=== PATIENT | male | born 1990 | race Caucasian/White ===

== ENCOUNTER 2019-07-11 15:24 | Inpatient (IN) | payer OTHER, SELFPAY ==
[~2019-07-11] VITALS: Ht 177.8 cm; Wt 68.2 kg
[2019-07-11] MEDS ORDERED: ACETAMINOPHEN *IV* 1,000 MG in APPROPRIATE DILUENT 1 EA IV ONE (16:45)
[2019-07-11] MEDS ORDERED: NS 1,000 ML IV ONE ×3 (16:45→21:15)
[2019-07-11 17:26] LABS: BASO % 0.3 % (0.0-1.0); HEMATOCRIT 47.8 % (42.0-52.0); HEMOGLOBIN 16.1 g/dl (13.5-17.5); LYMPH # 0.5 10^3/uL (1.5-5.0); LYMPH % 4.1 % (24.0-44.0); MEAN CORPUSCULAR HEMOGLOBIN 32.1 pg (27.0-33.0); MEAN CORPUSCULAR HGB CONC 33.7 g/dl (32.0-36.5); MEAN CORPUSCULAR VOLUME 95.4 fl (80.0-96.0); MONO # 1.6 10^3/uL (0.0-0.8); MONO % 12.6 % (0.0-5.0); NEUTROPHILS # 10.6 10^3/uL (1.5-8.5); NEUTROPHILS % 82.5 % (36.0-66.0); PLATELET COUNT, AUTOMATED 156 10^3/uL (150-450); RED BLOOD COUNT 5.01 10^6/uL (4.30-6.10); WHITE BLOOD COUNT 12.9 10^3/uL (4.0-10.0)
[2019-07-11 17:39] LABS: MONO SCRN NEGATIVE (NEGATIVE)
[2019-07-11 17:48] LABS: ERYTHROCYTE SEDIMENTATION RATE 9 mm/hr (0-15)
[2019-07-11 17:52] LABS: BLOOD UREA NITROGEN 9 MG/DL (7-18); CARBON DIOXIDE LEVEL 22 MEQ/L (21-32); CHLORIDE LEVEL 101 MEQ/L (98-107); CREATININE FOR GFR 0.89 MG/DL (0.70-1.30); GLOMERULAR FILTRATION RATE > 60.0 (>60); GLUCOSE, FASTING 109 MG/DL (70-100); POTASSIUM SERUM 3.8 MEQ/L (3.5-5.1); SODIUM LEVEL 134 MEQ/L (136-145)
[2019-07-11] MEDS ORDERED: ISOVUE-370 76% 100ML VIAL (Q9967) As Ordered ONE (18:05)
[2019-07-11 18:46] LABS: MYOGLOBIN SCREEN, URINE POSITIVE (NEGATIVE)
[2019-07-11 18:47] LABS: APPEARANCE, URINE HAZY (CLEAR); BACTERIA, URINE AUTO NEGATIVE (NEGATIVE); BILIRUBIN, URINE AUTO NEGATIVE (NEGATIVE); BLOOD, URINE BLOOD 1+ (NEGATIVE); COLOR, URINE YELLOW (YELLOW); GLUCOSE, URINE (UA) AUTO NEGATIVE (NEGATIVE); KETONE, URINE AUTO 2+ mg/dL (NEGATIVE); LEUKOCYTE ESTERASE, URINE AUTO NEGATIVE (NEGATIVE); MUCUS, URINE SMALL (NEGATIVE); NITRITE, URINE AUTO NEGATIVE (NEGATIVE); PROTEIN, URINE AUTO 2+ mg/dL (NEGATIVE); RBC, URINE AUTO 4 /HPF (0-3); SPECIFIC GRAVITY URINE AUTO 1.048 (1.002-1.035); SQUAMOUS EPITHELIAL CELL UR AU 0 /HPF (0-6); WBC, URINE AUTO 0 /HPF (0-3)
--- NOTE | 2019-07-11 19:04 | REPVR ---
EXAM: CT Neck With Contrast EXAM DATE/TIME: 07/11/2019 6:11 PM CLINICAL HISTORY: 29 years old, male; Mass, lump, or swelling in neck; Additional info: Diffuse lymphadenopathy cervical, ? dental abscess TECHNIQUE: Imaging protocol: Computed tomography images of the neck with intravenous contrast. Radiation optimization: All CT scans at this facility use at least one of these dose optimization techniques: automated exposure control; mA and/or kV adjustment per patient size (includes targeted exams where dose is matched to clinical indication); or iterative reconstruction. Contrast material: ISOVUE 370; Contrast volume: 100 ml; Contrast route: IV; COMPARISON: No relevant prior studies available. FINDINGS: Nasopharynx: Unremarkable. Oropharynx: Unremarkable. No significant tonsillar enlargement. Abnormal lucency in the left lung the mouth as described below does not extend to the mylohyoid. Hypopharynx: Unremarkable Larynx: Unremarkable. Normal epiglottis. Retropharyngeal space: Unremarkable. Submandibular/Parotid glands: The left submandibular gland is enlarged and heterogeneous in enhancement compared with the contralateral gland. There is an abnormal lucency extending anteriorly from the gland into the floor of the mouth. It does not have the tubular configuration of a normal duct. No evidence of sialolith. The right submandibular gland is normal. The parotids are normal. Thyroid: Normal. No enlarged or calcified nodules. Lymph nodes: Unremarkable. No lymphadenopathy. Trachea: Visualized trachea is unremarkable. Lungs: Unremarkable as visualized. Dental: There is artifact secondary to dental amalgam partially obscuring the oropharynx. There is no evidence of periapical dental abscess. Bones/joints: Unremarkable. No acute fracture. Soft tissues: There is left submandibular soft tissue swelling with infiltration of the subcutaneous fat and thickening of the platysma. IMPRESSION: Asymmetric heterogeneous enhancement and slight enlargement of the left submandibular gland consistent with sialoadenitis. There is an abnormal lucency extending from the gland into the floor of the mouth. It does not have the contour of a normal duct and may be an obstructed duct or developing abscess. There is adjacent left facial cellulitis. Electronically signed by: Alexandre Norton On 07/11/2019 19:04:03 PM
[2019-07-11] MEDS ORDERED: dexameTHASONE 20 MG/5 ML VIAL (J1100) IV ONE (19:30)
[2019-07-11] MEDS ORDERED: MORPHINE 2 MG/ML 1ML SYRINGE (J2270) IV ONE (19:30)
[2019-07-11 19:55] LABS: CPK CREATINE PHOSPHOKINASE 148 U/L (39-308)
[2019-07-11] MEDS ORDERED: MORPHINE 4 MG/ML 1ML VIAL/SYRINGE (J2270) IV ONE (21:15)
[2019-07-11] MEDS ORDERED: KETOROLAC 30 MG/ML VIAL (J1885) IV ONE (21:15)
[2019-07-11] MEDS ORDERED: CLINDAMYCIN 900 MG in APPROPRIATE DILUENT 1 EA IV ONE (21:15)
[2019-07-11] MEDS ORDERED: IBUP-1729 PO (21:29)
[2019-07-11] MEDS ORDERED: VITMTA PO (21:29)
[2019-07-11] MEDS ORDERED: ACETAMINOPHEN TAB 650MG DOSE (2X325MG) PO PRN (22:30)
--- NOTE | 2019-07-11 22:35 | HPEPDOC ---
General Date of Admission 07/11/19 Date of Service: Jul 11, 2019 Attending Physician: NILS SANTA DO Chief Complaint The patient is a 29-year-old male admitted with a reason for visit of Dental A bcess. Source: Patient Exam Limitations: No limitations Timing/Duration: Day(s) (3) Severity: Moderate Associated Symptoms: Chills, Loss of appetite History of Present Illness Patient is 29 years old male without past medical history presented hospital with left jaw pain and swelling. Patient stated that for many years he had poor oral hygiene, and 3 days ago he started noticing swelling of his left jaw soft tissue, which became bigger in size spreading down to the neck. He couldn't have opened his mouth to bite food. also patient complains of difficulty in s wallowing. Patient denies fever but he stated that he had the chills. Patient took ibuprofen 200 mg every 2 hours for past 24 hours. Of note, patient stated that he drinks vodka every day for past few months. In emergency room patient was found to have leukocytosis. Neck CT showed asymmetric heterogeneous enhancement and slight enlargement of the left submandibular gland consistent with sialoadenitis. There is an abnormal lucency extending from the gland into the floor of the mouth Home Medications Scheduled PRN Ibuprofen (Ibuprofen) 200 Mg Tablet, 400 MG PO Q6H PRN for PAIN, (Reported) Multivitamins (Thera M Plus Tablet) 1 Each Tablet, 1 TAB PO DAILY PRN for COLD SYMPTOMS, (Reported) Allergies Coded Allergies: No Known Allergies (Unverified , 07/11/19) Past Medical History Medical History No past medical history Family History Father has IBS Social History * Smoker: greater than 1 pack/day Alcohol: heavy Drugs: marijuana A-FIB/CHADSVASC A-FIB History Current/History of A-Fib/PAF?: No Current PO Anticoag Therapy: No Review of Systems Constitutional: Reports: Chills, Malaise Eyes: Denies: Conjunctivae inflammation ENT: Reports: Ear Pain (left), Dysphagia, Sore Throat, Other Symptoms (left jaw pain) Skin: Denies: Rash Pulmonary: Denies: Dyspnea Cardiovascular: Denies: Chest Pain, Palpitations Gastrointestinal: Denies: Nausea, Vomiting Genitourinary: Denies: Dysuria, Frequency Hematologic: Denies: Bruising, Bleeding Excessively Endocrine: Denies: Polydipsia, Polyphagia Musculoskeletal: Reports: Neck Pain (left side) Neurological: Denies: Weakness, Numbness, Incoordination Psych: Denies: Mood Normal, Depression Physical Examination General Exam: Positive: Alert, Cooperative Eye Exam: Positive: PERRLA, EOMI ENT Exam: Positive: Atraumatic, Pharyngeal Edema (left side), Other ENT (submandibular soft tissue swelling, left gum swelling) Neck Exam: Negative: JVD Chest Exam: Positive: Clear to auscultation Heart Exam: Positive: Rate Normal Telemetry: Positive: No significant arrhythmia Abdomen Exam: Positive: Normal bowel sounds Extremity Exam: Negative: Clubbing, Cyanosis Skin Exam: Negative: Nl turgor and temperature Neuro Exam: Positive: Normal Gait, Cranial Nerves 3-12 NL Psych Exam: Positive: Mental status NL Vital Signs Vital Signs Date Time Temp Pulse Resp B/P (MAP) Pulse Ox O2 Delivery O2 Flow Rate FiO2 07/11/19 21:35 16 07/11/19 15:39 07/11/19 15:24 99.0 133 98 Room Air Laboratory Data Labs 24H Laboratory Tests 2 07/11/19 16:59: Immature Granulocyte % (Auto) 0.5, White Blood Count 12.9H, Red Blood Count 5.01, Hemoglobin 16.1, Hematocrit 47.8, Mean Corpuscular Volume 95.4, Mean Corpuscular Hemoglobin 32.1, Mean Corpuscular Hemoglobin Concent 33.7, Red Cell Distribution Width 11.9, Platelet Count 156, Neutrophils (%) (Auto) 82.5H, Lymphocytes (%) (Auto) 4.1L, Monocytes (%) (Auto) 12.6H, Eosinophils (%) (Auto) 0.0, Basophils (%) (Auto) 0.3, Neutrophils # (Auto) 10.6H, Lymphocytes # (Auto) 0.5L, Monocytes # (Auto) 1.6H, Eosinophils # (Auto) 0.0, Basophils # (Auto) 0.0, Nucleated Red Blood Cells % (auto) 0.0, Erythrocyte Sedimentation Rate 9, Urine Appearance HAZY, Urine Color YELLOW, Urine pH 6.0, Urine Specific [place] 1.048, Urine Protein 2+H, Urine Glucose (UA) NEGATIVE, Urine Ketones 2+H, Urine Urobilinogen 2.0H, Urine Bilirubin NEGATIVE, Urine Leukocyte Esterase NEGATIVE, Urine Blood 1+H, Urine Nitrite NEGATIVE, Urine WBC (Auto) 0, Urine RBC (Auto) 4H, Urine Hyaline Casts (Auto) 0, Urine Bacteria (Auto) NEGATIVE, Urine Squamous Epithelial Cells 0, Urine Mucus (Auto) SMALL, Urine Sperm (Auto) , Urine My oglobin POSITIVE, Anion Gap 11, Glomerular Filtration Rate > 60.0, Blood Urea Nitrogen 9, Creatinine 0.89, Sodium Level 134L, Potassium Level 3.8, Chloride Level 101, Carbon Dioxide Level 22, Calcium Level 10.0, Total Creatine Kinase 148, C-Reactive Protein, Quantitative 15.30H, Monoscreen NEGATIVE CBC/BMP Laboratory Tests 07/11/19 16:59 Red Blood Count 5.01, Mean Corpuscular Volume 95.4, Mean Corpuscular Hemoglobin 32.1, Mean Corpuscular Hemoglobin Concent 33.7, Red Cell Distribution Width 11.9, Neutrophils (%) (Auto) 82.5 H, Lymphocytes (%) (Auto) 4.1 L, Monocytes (%) (Auto) 12.6 H, Eosinophils (%) (Auto) 0.0, Basophils (%) (Auto) 0.3, Neutrophils # (Auto) 10.6 H, Lymphocytes # (Auto) 0.5 L, Monocytes # (Auto) 1.6 H, Eosinophils # (Auto) 0.0, Basophils # (Auto) 0.0, Calcium Level 10.0 Microbiology Microbiology 07/11/19 Group A Streptococcus Screen (ARNULFO), Received Pending Assessment/Plan Patient is 29 years old male without past medical history presented hospital with left jaw pain and swelling. Patient stated that for many years he had poor oral hygiene, and 3 days ago he started noticing swelling of his left jaw soft tissue, which became bigger in size spreading down to the neck. He couldn't have opened his mouth to bite food. also patient complains of difficulty in swallowing. Patient denies fever but he stated that he had the chills. Patient took ibuprofen 200 mg every 2 hours for past 24 hours. Of note, patient stated that he drinks vodka every day for past few months. In emergency room patient was found to have leukocytosis. Neck CT showed asymmetric heterogeneous en hancement and slight enlargement of the left submandibular gland consistent with sialoadenitis. There is an abnormal lucency extending from the gland into the floor of the mouth Problems (1) Dental abscess Problem Text: Secondary to poor oral hygiene There is concern for spreading infection to the pharynx and retropharyngeal space Appreciate/agree with ENT consult Clindamycin 900 mg IV every 6h Blood culture, procalcitonin, LA (2) Alcohol abuse Problem Text: SiWA protocol (3) Facial cellulitis Status: Acute Problem Text: see above NILS SANTA DO Jul 11, 2019 22:35
[2019-07-11] MEDS ORDERED: LORazepam 2 MG TAB PO PRN (23:00)
[2019-07-12 00:16] VITALS: BP 117/78
[2019-07-12 00:18] VITALS: BP 117/78
[2019-07-12] MEDS: D5W/0.9% SODIUM CHLORIDE 1,000 ML IV SCH ×3 (00:29→15:00)
[2019-07-12] MEDS: THIAMINE 100 MG TAB PO SCH ×2 (01:03→08:16)
[2019-07-12] MEDS: CLINDAMYCIN 900 MG in APPROPRIATE DILUENT 1 EA IV SCH ×3 (03:08→15:00)
[2019-07-12 07:15] LABS: ALBUMIN 3.2 GM/DL (3.2-5.2); ALT/SGPT 16 U/L (12-78); BILIRUBIN,TOTAL 0.4 MG/DL (0.2-1.0); BLOOD UREA NITROGEN 7 MG/DL (7-18); CALCIUM LEVEL 8.7 MG/DL (8.5-10.1); CARBON DIOXIDE LEVEL 21 MEQ/L (21-32); CHLORIDE LEVEL 107 MEQ/L (98-107); CREATININE FOR GFR 0.67 MG/DL (0.70-1.30); GLOMERULAR FILTRATION RATE > 60.0 (>60); GLUCOSE, FASTING 171 MG/DL (70-100); MAGNESIUM LEVEL 1.8 MG/DL (1.8-2.4); SODIUM LEVEL 139 MEQ/L (136-145); TOTAL PROTEIN 6.8 GM/DL (6.4-8.2)
[2019-07-12 08:00] VITALS: BP 127/79
[2019-07-12 08:24] VITALS: BP 127/79
[2019-07-12] MEDS ORDERED: FOLIC ACID 1 MG TAB PO SCH (09:00)
[2019-07-12] MEDS ORDERED: NICOTINE 21MG/24HR 1 EA TRANSDERMAL TD SCH (09:00)
[2019-07-12] MEDS ORDERED: MULTIVITAMINS/MINERALS THERAP 1 TAB PO SCH (09:00)
[2019-07-12] MEDS ORDERED: HEPARIN SOD (PORCINE) 5000 UNITS/ML VIAL SC SCH ×2 (09:00→14:00)
[2019-07-12 09:18] LABS: BASO % 0.1 % (0.0-1.0); HEMATOCRIT 42.6 % (42.0-52.0); HEMOGLOBIN 14.3 g/dl (13.5-17.5); LYMPH # 0.4 10^3/uL (1.5-5.0); LYMPH % 3.5 % (24.0-44.0); MEAN CORPUSCULAR HEMOGLOBIN 32.2 pg (27.0-33.0); MEAN CORPUSCULAR HGB CONC 33.6 g/dl (32.0-36.5); MEAN CORPUSCULAR VOLUME 95.9 fl (80.0-96.0); MONO # 0.6 10^3/uL (0.0-0.8); MONO % 5.8 % (0.0-5.0); NEUTROPHILS # 9.7 10^3/uL (1.5-8.5); NEUTROPHILS % 90.3 % (36.0-66.0); PLATELET COUNT, AUTOMATED 161 10^3/uL (150-450); RED BLOOD COUNT 4.44 10^6/uL (4.30-6.10); WHITE BLOOD COUNT 10.7 10^3/uL (4.0-10.0)
--- NOTE | 2019-07-12 11:18 | IPNPDOC ---
Text Note Date of Service The patient was seen on 07/12/19. NOTE Subjective: Patient is seen and examined at bedside. Patient states he came into the hospital because he was unable to open his jaw due to pain in his lower left jaw. Patient states he has not been really since Wednesday. Patient says he does drink alcohol every day and he drinks heavily each day. Patient also smokes greater than one pack of cigarettes but he is not sure how much because he rolls his own cigarettes using looseleaf tobacco. Patient was very adamant that he needed a cigarette or a nicotine patch. Patient is not complaining of any other pain except for the pain in his left face. Review of systems General: Patient denies fevers HEENT: Pain and swelling in his left lower jaw as described above. Cardiovascular: Patient denies chest pain Respiratory: Patient denies shortness of breath, cough GI: Patient denies abdominal pain, nausea, vomiting, diarrhea : Patient denies pain or difficulty with urination Neurological: Patient denies numbness or tingling in extremities Extremities: Patient denies swelling or pain in extremities Objective: Vitals: (see below) General: No acute distress, laying comfortably in bed. HEENT: There is swelling about the left side of the jaw Neck: Swelling on the left side of the neck extending down to the jaw. Cardiac: RRR, No murmurs Pulm: Clear to auscultation b/l. No wheezing, rhonchi Abd: NT/ND + BS Ext: No edema or cyanosis. Radial, posterior tibial, and dorsalis pedis pulses equal bilaterally. Labs (see below) Images: A CT of the neck with contrast showed asymmetric heterogeneous enhancement and slight enlargement of the left submandibular gland consistent with sialoadenitis. There is an abnormal lucency extending from the gland and floor of the mouth. Does not have the contour of her normal doctor and may be obstructed duct developing abscess. There is adjacent left facial cellulitis. Assessment/Plan 1. Sialoadenitis. I consulted Dr. Whittington of ENT to see the patient. He does not believe that surgery is necessary at this time and the patient just needs IV clindamycin. We will continue with IV clindamycin. 2. Heavy alcohol use. Patient is not currently in alcohol withdrawal however, he is on the CIWA protocol. We will continue to monitor. 3. Nicotine use disorder. Patient requires a nicotine patch. 4. Facial cellulitis. Continue treatment as above. DVT prophy: 5000 units every 8 hours Dispo: Pending clinical improvement VS,Apryl, I+O VS, Jamaale, I+O Laboratory Tests 07/11/19 16:59 Red Blood Count 5.01, Mean Corpuscular Volume 95.4, Mean Corpuscular Hemoglobin 32.1, Mean Corpuscular Hemoglobin Concent 33.7, Red Cell Distribution Width 11. 9, Neutrophils (%) (Auto) 82.5 H, Lymphocytes (%) (Auto) 4.1 L, Monocytes (%) (Auto) 12.6 H, Eosinophils (%) (Auto) 0.0, Basophils (%) (Auto) 0.3, Neutrophils # (Auto) 10.6 H, Lymphocytes # (Auto) 0.5 L, Monocytes # (Auto) 1.6 H, Eosinophils # (Auto) 0.0, Basophils # (Auto) 0.0, Calcium Level 10.0 07/12/19 06:35 Calcium Level 8.7, Aspartate Amino Transf (AST/SGOT) 15, Alanine Aminotransferase (ALT/SGPT) 16, Alkaline Phosphatase 47, Total Bilirubin 0.4, Total Protein 6.8, Albumin 3.2 07/12/19 07:17 Red Blood Count 4.44, Mean Corpuscular Volume 95.9, Mean Corpuscular Hemoglobin 32.2, Mean Corpuscular Hemoglobin Concent 33.6, Red Cell Distribution Width 11.9, Neutrophils (%) (Auto) 90.3 H, Lymphocytes (%) (Auto) 3.5 L, Monocytes (%) (Auto) 5.8 H, Eosinophils (%) (Auto) 0.0, Basophils (%) (Auto) 0.1, Neutrophils # (Auto) 9.7 H, Lymphocytes # (Auto) 0.4 L, Monocytes # (Auto) 0.6, Eosinophils # (Auto) 0.0, Basophils # (Auto) 0.0 Vital Signs Date Time Temp Pulse Resp B/P (MAP) Pulse Ox O2 Delivery O2 Flow Rate FiO2 07/12/19 08:24 70 127/79 07/12/19 08:00 98.3 20 98 07/11/19 23:48 Room Air I&O- Last 24 Hours up to 6 AM 07/12/19 06:00 Intake Total 3876 ml Output Total 600 ml Balance 3276 ml GME ATTESTATION GME ATTESTATION My faculty preceptor for this patient encounter was physically present during the encounter and was fully available. All aspects of the patient interview, examination, medical decision making process, and medical care plan development were reviewed and approved by the faculty preceptor. The faculty preceptor is aware and concurs with the plan as stated in the body of this note and will attest to such by his/her cosignature. ATTENDING NOTE I, Sapna Saxena, have independently examined this patient and performed my own physical exam, as well as reviewed the documentation and edited where necessary. I have discussed in detail with the resident / student the findings and plan of treatment as documented by the resident / student and edited their note. I agree with their findings and treatment plan and have edited their documentation. I will continue to follow the patient during this hospital stay. MARC OAKES DO Jul 12, 2019 11:18 SAPNA SAXENA MD Jul 12, 2019 14:37
[2019-07-12] MEDS ORDERED: OXAZEPAM 10 MG CAP PO SCH (14:00)
[2019-07-12] MEDS ORDERED: KETOROLAC 30 MG/ML VIAL (J1885) IV PRN (15:00)
[2019-07-12 15:28] VITALS: BP 128/77
[2019-07-12 15:31] VITALS: BP 128/77
[2019-07-12 16:54] LABS: INR 1.06; PROTHROMBIN TIME 13.5 SECONDS (11.8-14.0)
[2019-07-12] MEDS ORDERED: CLEO300C2 PO (20:24)
[2019-07-12] MEDS ORDERED: THIA100TA PO (20:44)
--- NOTE | 2019-07-12 20:51 | CR ---
DATE OF CONSULTATION: 07/12/2019 REQUESTING PHYSICIAN: Mike Zhang DO REASON FOR CONSULTATION: Possible dental abscess with some swelling around the left submandibular region. HISTORY OF PRESENT ILLNESS: This 29-year-old gentleman has had multiple problems with his dentition in the past, he has had poor hygiene for many years, 3 days prior to admission he started noticing swelling on the left side of his jaw, some soft tissue swelling became harder and started spreading down the left side of his neck. He had difficulty opening up his mouth due to the pain and also difficulty biting the food, reported a little bit of difficulty swallowing. He has had no shortness of breath. Denied any fevers but started having chills the night of admission. He did take ibuprofen 200 every 2 hours prior to admission. The patient also states that he drinks vodka every day for the past few months. The patient also reports that in the past he has had other areas where he has had scratching and itching and has had superficial abscesses. He is able to talk. He has no difficulty breathing. He does report pain referred to the left ear which he has had for a little bit of time as well. HOME MEDICATIONS: Were: - ibuprofen - multivitamins Since admission the patient has been on: - clindamycin 900 IV every 6 hours - Ativan 2 mg as per protocol - acetaminophen every 6 hours - folic acid 1 mg - heparin 5000 units every eight hours subcutaneously PAST MEDICAL HISTORY Is not significant. FAMILY HISTORY: Father has IBS. SOCIAL HISTORY: The patient is a smoker, greater than a pack a day. Alcohol drinks fairly heavily and then also marijuana. REVIEW OF SYSTEMS: Constitutional: The patient reports chills and tiredness. Eyes: Denies any change in vision. ENT: The patient has left ear pain and left jaw pain. Skin: Denies any recent rashes, however on his chest he has had some other rashes in the past that he has been scratching. Pulmonary: Denies any shortness of breath or dyspnea. Cardiovascular: Denies any chest pain or palpitations. GI: Denies any nausea or vomiting currently. Hematological: Denies easy bruisability or bleeding excessively. Endocrine: Denies any history of thyroid issues or diabetes. Musculoskeletal: Just has localized pain in the left submandibular region site. Psychiatric: Denies any depression or any other significant issues. PHYSICAL EXAMINATION: The patient is in room 4134 [address], resting comfortably, talking comfortably as well. The pinna are within normal limits. External canals about 75% fill of cerumen. Of what could be seen of the TMs they were intact. The patient nose has external nasal pyramids unremarkable. Intranasal exam is unremarkable. Oral exam: The patient has approximately 3 cm of inter-incisor opening, reports some pain. The patient's posterior oropharynx is clear. His crown on the left most posterior mandible is completely eroded away. There is some mild edema around the inflamed crown, slight tenderness to that area. Posterior oropharynx is unremarkable, wide open airway. Neck shows tenderness in the left submandibular region without any fluctuance or palpable abscess formation, is indurated, the patient is tender in this area as well. Neck is otherwise unremarkable. Tongue is easily mobile. White count was 12.9, hemoglobin 16.1, hematocrit 47.8, platelet count 157,000. Blood cultures as well as group A Streptococcus screening are pending. IMPRESSION: Patient with cellulitis and possible early dental abscess which may respond to IV antibiotics but most certainly will eventually require a dental extraction by oral surgeon. PLAN: At this point I have discussed the case with the patient and will have him on the IV antibiotics. Will see how he responds. Will let him go ahead and eat today. He may need to have IV antibiotics for a few days. He may develop a consolidation that may be a drainable abscess but at this point there is none. Would recommend considering oral surgery consultation for surgical extraction of the tooth which can be done at their convenience. Will follow the patient. I have talked with the nurse about ordering a CBC with a differential tomorrow morning and see how he responds to the IV antibiotics and see if he starts to consolidate.
[2019-07-13] MEDS ORDERED: THIA100T7 PO (03:24)
[2019-07-13] MEDS ORDERED: CLIN300C5 PO (03:24)
--- NOTE | 2019-07-13 07:51 | DS.PDOC ---
Discharge Summary General Date of Admission Jul 11, 2019 at 22:14 Date of Discharge 07/12/19 Attending Physician: NILS SANTA DO Specialist/Consultants Involve: SHAINA SUERO MD Specialist/Consultants Involve ENT who placed patient on IV antibiotics Clindamycin Discharge Summary PROCEDURES PERFORMED DURING STAY: [None]. ADMITTING DIAGNOSES: 1. . DISCHARGE DIAGNOSES: 1. . COMPLICATIONS/CHIEF COMPLAINT: Dental Abcess. HISTORY OF PRESENT ILLNESS: . HOSPITAL COURSE: IV antibiotics Clindamycin . DISCHARGE MEDICATIONS: Please see below. ALLERGIES: Please see below. PHYSICAL EXAMINATION ON DISCHARGE: VITAL SIGNS: Please see below. GENERAL: In no acute distress, Agitated, Uncooperative HEENT: Normocephalic, PERRLA x2, tongue midline, NECK: Mild edema submandibular lymph node with mild tenderness to touch CARDIOVASCULAR EXAMINATION: S1S2, RRR, no murmurs or gallops RESPIRATORY EXAMINATION: Clear to Auscultation all lobes SKIN: warm and dry to touch NEUROLOGICAL EXAMINATION: AA&O x3, Gait steady with even heel toe during ambulation PSYCHIATRIC EXAMINATION: Agitated, Argumentative, poor eye contact during discharge with provider and nurse, voice raised LABORATORY DATA: Please see below. 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 He stated he can eat just fine. The food here was taken from him and he does not like it. DISCHARGE PLAN: Explained to patient with ER warnings to return in 1-3 days if symptoms worsens or do not improve. Patient voiced understanding. DISPOSITION: 07 Against Medical Advice. DISCHARGE INSTRUCTIONS: 1. Follow up with ENT and or Dental in 7 days. ITEMS TO FOLLOWUP ON ON OUTPATIENT: 1. Swelling, swallowing difficulties if they arise, and or fever > 100.5. DISCHARGE CONDITION: Stable. TIME SPENT ON DISCHARGE: Greater than 30 minutes. Vital Signs/I&Os Vital Signs Date Time Temp Pulse Resp B/P (MAP) Pulse Ox O2 Delivery O2 Flow Rate FiO2 07/12/19 15:31 98.4 70 20 128/77 (94) 99 07/11/19 23:48 Room Air I&O- Last 24 Hours up to 6 AM 07/13/19 06:00 Intake Total 1725 ml Output Total 1275 ml Balance 450 ml Laboratory Data Labs 24H Laboratory Tests 2 07/12/19 07:17: Immature Granulocyte % (Auto) 0.3, White Blood Count 10.7H, Red Blood Count 4.44, Hemoglobin 14.3, Hematocrit 42.6, Mean Corpuscular Volume 95.9, Mean Corpuscular Hemoglobin 32.2, Mean Corpuscular Hemoglobin Concent 33.6, Red Cell Distribution Width 11.9, Platelet Count 161, Neutrophils (%) (Auto) 90.3H, Lymphocytes (%) (Auto) 3.5L, Monocytes (%) (Auto) 5.8H, Eosinophils (%) (Auto) 0.0, Basophils (%) (Auto) 0.1, Neutrophils # (Auto) 9.7H, Lymphocytes # (Auto) 0.4L, Monocytes # (Auto) 0.6, Eosinophils # (Auto) 0.0, Basophils # (Auto) 0.0, Nucleated Red Blood Cells % (auto) 0.0 07/12/19 16:28: Prothrombin Time 13.5, Prothromb Time International Ratio 1.06 CBC/BMP Laboratory Tests 07/12/19 07:17 Red Blood Count 4.44, Mean Corpuscular Volume 95.9, Mean Corpuscular Hemoglobin 32.2, Mean Corpuscular Hemoglobin Concent 33.6, Red Cell Distribution Width 11.9, Neutrophils (%) (Auto) 90.3 H, Lymphocytes (%) (Auto) 3.5 L, Monocytes (%) (Auto) 5.8 H, Eosinophils (%) (Auto) 0.0, Basophils (%) (Auto) 0.1, Neutrophils # (Auto) 9.7 H, Lymphocytes # (Auto) 0.4 L, Monocytes # (Auto) 0.6, Eosinophils # (Auto) 0.0, Basophils # (Auto) 0.0 Microbiology Microbiology 07/12/19 Blood Culture - Preliminary, Resulted No growth after 24 hours . All specim... 07/11/19 Group A Streptococcus Screen (ARNULFO) - Final, Complete Discharge Medications Scheduled Clindamycin HCl (Clindamycin HCl) 300 Mg Capsule, 300 MG PO TID, (Reported) Thiamine HCl (Thiamine HCl) 100 Mg Tablet, 100 MG PO BID, (Reported) Scheduled PRN Ibuprofen (Ibuprofen) 200 Mg Tablet, 400 MG PO Q6H PRN for PAIN, (Reported) Multivitamins (Thera M Plus Tablet) 1 Each Tablet, 1 TAB PO DAILY PRN for COLD SYMPTOMS, (Reported) Allergies Coded Allergies: No Known Allergies (Unverified , 07/11/19) JAMA ESCUDERO FOUNTAIN HELPER Jul 13, 2019 07:51
[2019-07-13] MEDS ORDERED: PHENYLEPHRINE 0.5% NASAL SPRAY 15 ML As Ordered ONE (10:56)
[2019-07-13] MEDS ORDERED: METHYLENE BLUE 0.5% (5MG/ML) 10 ML AMP (PROVAYBLUE)(Q9968 PER 1MG) As Ordered ONE (10:56)
[2019-07-13] MEDS ORDERED: LIDOCAINE W/EPINEPHRINE 1% 20ML VIAL As Ordered ONE (10:56)
[2019-07-13] MEDS ORDERED: BACITRACIN PWD 50,000 UNITS VIAL As Ordered ONE (11:20)
== END 2019-07-12 20:35 | disposition left against medical advice (07) | DRG 383 ==
LOC: M ED 15:24 → M ED INP 22:14 → M MS4PR 07-12 00:15
PROVIDERS: ADMIT Internal Medicine; ATTEND Internal Medicine
DX: L03.211 Cellulitis of face (principal); F10.10 Alcohol abuse, uncomplicated; K11.20 Sialoadenitis, unspecified; F17.200 Nicotine dependence, unspecified, uncomplicated; F12.90 Cannabis use, unspecified, uncomplicated

== ENCOUNTER 2019-07-12 22:18 | Inpatient (IN) | payer OTHER ==
[~2019-07-12] VITALS: Ht 175.3 cm; Wt 61.8 kg
[~2019-07-12 22:18] MED LIST: CLEO300C2 PO; IBUP-1729 PO; THIA100TA PO; VITMTA PO
[2019-07-13] VITALS (7 sets, daily range): BP systolic 112–125; BP diastolic 63–75
[2019-07-13 01:35] LABS: BASO % 0.3 % (0.0-1.0); EOS % 0.1 % (0.0-3.0); HEMATOCRIT 40.4 % (42.0-52.0); HEMOGLOBIN 13.8 g/dl (13.5-17.5); LYMPH # 1.1 10^3/uL (1.5-5.0); LYMPH % 6.8 % (24.0-44.0); MEAN CORPUSCULAR HEMOGLOBIN 32.1 pg (27.0-33.0); MEAN CORPUSCULAR HGB CONC 34.2 g/dl (32.0-36.5); MONO # 1.7 10^3/uL (0.0-0.8); NEUTROPHILS # 12.6 10^3/uL (1.5-8.5); NEUTROPHILS % 81.4 % (36.0-66.0); PLATELET COUNT, AUTOMATED 157 10^3/uL (150-450); WHITE BLOOD COUNT 15.5 10^3/uL (4.0-10.0)
[2019-07-13] MEDS ORDERED: NS 1,000 ML IV SCH (01:41)
[2019-07-13] MEDS ORDERED: AMPICILLIN SOD/SULBACTAM SOD 3 GM in D5W MINI-BAG PLUS 100 ML IV ONE (01:45)
[2019-07-13] MEDS ORDERED: MORPHINE 4 MG/ML 1ML VIAL/SYRINGE (J2270) IV ONE ×2 (01:45→14:00)
[2019-07-13] MEDS ORDERED: ISOVUE-370 76% 100ML VIAL (Q9967) As Ordered ONE (01:52)
[2019-07-13 02:01] LABS: BLOOD UREA NITROGEN 7 MG/DL (7-18); CALCIUM LEVEL 8.8 MG/DL (8.5-10.1); CARBON DIOXIDE LEVEL 24 MEQ/L (21-32); CHLORIDE LEVEL 109 MEQ/L (98-107); CREATININE FOR GFR 0.77 MG/DL (0.70-1.30); GLOMERULAR FILTRATION RATE > 60.0 (>60); GLUCOSE, FASTING 127 MG/DL (70-100); POTASSIUM SERUM 3.1 MEQ/L (3.5-5.1); SODIUM LEVEL 143 MEQ/L (136-145)
[2019-07-13] MEDS ORDERED: POTASSIUM CHLORIDE 10 MEQ SR TABLET PO ONE (02:30)
[2019-07-13] MEDS ORDERED: CLIN300C5 PO (03:24)
[2019-07-13] MEDS ORDERED: THIA100T7 PO (03:24)
--- NOTE | 2019-07-13 04:00 | REPVR ---
EXAM: CT Neck With Contrast EXAM DATE/TIME: 07/13/2019 1:47 AM CLINICAL HISTORY: 29 years old, male; Pain; Other: Dental abscess; Additional info: Facial swelling floor of mouth eval for abscess TECHNIQUE: Imaging protocol: Computed tomography images of the neck with intravenous contrast. Radiation optimization: All CT scans at this facility use at least one of these dose optimization techniques: automated exposure control; mA and/or kV adjustment per patient size (includes targeted exams where dose is matched to clinical indication); or iterative reconstruction. Contrast material: ISO; Contrast volume: 75 ml; Contrast route: AC; COMPARISON: CT Neck with contrast 07/11/2019 6:10 PM FINDINGS: Nasopharynx: Unremarkable. Oropharynx: Unremarkable. No significant tonsillar enlargement. Hypopharynx: Unremarkable Larynx: Unremarkable. Normal epiglottis. Retropharyngeal space: Unremarkable. Submandibular/Parotid glands: Heterogeneous enlarged left submandibular gland with surrounding inflammation and small fluid likely reactive sialadenitis from left mandibular dental abscess. Opacification of the left vallecula likely from inflammation extending from the left submandibular gland. Right submandibular gland and bilateral parotid glands are unremarkable. Thyroid: Normal. No enlarged or calcified nodules. Lymph nodes: Multiple enlarged cervical chain lymph nodes likely reactive. Trachea: Visualized trachea is unremarkable. Lungs: Unremarkable as visualized. Dental: Lucency is seen in the left second molar mandibular tooth with large low attenuation area in the floor of the mouth with surrounding enhancing margin extending from the inner margin of the left mandible roughly measuring 24 x 15 mm (craniocaudal/AP projection). Multiple septations are seen in the fluid collection. Findings most likely represent multispatial abscess originating from left mandibular dental abscess at second molar Bones/joints: Unremarkable. No acute fracture. Soft tissues: Unremarkable. No significant soft tissue swelling. IMPRESSION: Lucency is seen in the left second molar mandibular tooth with large low attenuation area in the floor of the mouth with surrounding enhancing margin extending from the inner margin of the left mandible roughly measuring 24 x 15 mm (craniocaudal/AP projection). Multiple septations are seen in the fluid collection. Findings most likely represent multispatial abscess originating from left mandibular dental abscess at second molar Heterogeneous enlarged left submandibular gland with surrounding inflammation and small fluid likely reactive sialadenitis from left mandibular dental abscess. Opacification of the left vallecula likely from inflammation extending from the left submandibular gland. Reactive lymphadenopathy. Electronically signed by: Richa Mancuso On 07/13/2019 03:59:39 AM
[2019-07-13] MEDS ORDERED: LORazepam 2 MG TAB PO PRN (04:15)
[2019-07-13] MEDS: KCL 40MEQ IN D5/NS 1000ML 1,000 ML IV SCH ×2 (04:15→20:48)
--- NOTE | 2019-07-13 04:22 | HPEPDOC ---
General Date of Admission Jul 13, 2019 at 04:01 Date of Service: Jul 13, 2019 Attending Physician: NILS SANTA DO Chief Complaint The patient is a 29-year-old male admitted with a reason for visit of Alcohol Abuse, Dental Abcess, Facial Cellulitis. Source: Patient Exam Limitations: No limitations Timing/Duration: 24 hours Severity: Moderate History of Present Illness Patient is 29 years old male without past medical history presented hospital with left jaw pain and swelling. Patient left the hospital AMA yesterday. He was admitted prior with left facial cellulitis secondary to poor oral hygiene. CT scan was done yesterday and showed asymmetric heterogeneous enhancement and slight enlargement of the left submandibular gland consistent with sialoadenitis. Patient has been treated with clindamycin IV. ENT specialist saw him yesterday and recommended treatment with IV antibiotics until abscess consolidation. Today patient has more swollen left part of his face and neck, he barely opens his mouth. Patient has leukocytosis of 15. Of note, patient stated that he drinks vodka every day for past few months. Home Medications Scheduled Clindamycin HCl (Clindamycin HCl) 300 Mg Capsule, 300 MG PO TID, (Reported) Thiamine HCl (Thiamine HCl) 100 Mg Tablet, 100 MG PO BID, (Reported) Scheduled PRN Ibuprofen (Ibuprofen) 200 Mg Tablet, 400 MG PO Q6H PRN for PAIN, (Reported) Multivitamins (Thera M Plus Tablet) 1 Each Tablet, 1 TAB PO DAILY PRN for COLD SYMPTOMS, (Reported) Allergies Coded Allergies: No Known Allergies (Unverified , 07/11/19) Past Medical History Medical History No significant medical history Family History Father has IBS Social History * Smoker: current smoker, chew Alcohol: heavy Drugs: marijuana A-FIB/CHADSVASC A-FIB History Current/History of A-Fib/PAF?: No Current PO Anticoag Therapy: No Review of Systems Constitutional: Reports: Chills, Fatigue Eyes: Denies: Pain, Vision change ENT: Reports: Head Aches, Ear Pain, Sore Throat Skin: Denies: Rash, Lesions Pulmonary: Denies: Dyspnea, Cough Cardiovascular: Denies: Chest Pain, Palpitations Gastrointestinal: Denies: Nausea, Vomiting Genitourinary: Denies: Dysuria, Frequency Hematologic: Denies: Bruising, Bleeding Excessively Endocrine: Denies: Polydipsia, Polyphagia Musculoskeletal: Denies: Neck Pain, Back Pain Neurological: Denies: Weakness, Numbness Psych: Denies: Mood Normal, Anxiety Physical Examination General Exam: Positive: Mild Distress Eye Exam: Positive: PERRLA, EOMI ENT Exam: Positive: Other ENT (significant swelling of left jaw, mild swelling left part of the neck, left gum swollen) Neck Exam: Negative: JVD Chest Exam: Positive: Clear to auscultation Heart Exam: Positive: Rate Normal Telemetry: Positive: No significant arrhythmia Abdomen Exam: Positive: Normal bowel sounds Extremity Exam: Negative: Clubbing, Cyanosis Skin Exam: Positive: Other skin issue (left facial cellulitis); Negative: Nl turgor and temperature Neuro Exam: Positive: Strength at 5/5 X4 ext, Cranial Nerves 3-12 NL Psych Exam: Positive: Mental status NL Vital Signs Vital Signs Date Time Temp Pulse Resp B/P (MAP) Pulse Ox O2 Delivery O2 Flow Rate FiO2 07/13/19 02:52 20 07/13/19 01:15 07/12/19 22:19 98.6 105 100 Room Air Laboratory Data Labs 24H Laboratory Tests 2 07/13/19 01:29: Immature Granulocyte % (Auto) 0.4, White Blood Count 15.5H, Red Blood Count 4.30, Hemoglobin 13.8, Hematocrit 40.4L, Mean Corpuscular Volume 94.0, Mean Corpuscular Hemoglobin 32.1, Mean Corpuscular Hemoglobin Concent 34.2, Red Cell Distribution Width 11.8, Platelet Count 157, Neutrophils (%) (Auto) 81.4H, Lymphocytes (%) (Auto) 6.8L, Monocytes (%) (Auto) 11.0H, Eosinophils (%) (Auto) 0.1, Basophils (%) (Auto) 0.3, Neutrophils # (Auto) 12.6H, Lymphocytes # (Auto) 1.1L, Monocytes # (Auto) 1.7H, Eosinophils # (Auto) 0.0, Basophils # (Auto) 0.0, Nucleated Red Blood Cells % (auto) 0.0, Anion Gap 10, Glomerular Filtration Rate > 60.0, Blood Urea Nitrogen 7, Creatinine 0.77, Sodium Level 143, Potassium Level 3.1#L, Chloride Level 109H, Carbon Dioxide Level 24, Calcium Level 8.8 CBC/BMP Laboratory Tests 07/13/19 01:29 Red Blood Count 4.30, Mean Corpuscular Volume 94.0, Mean Corpuscular Hemoglobin 32.1, Mean Corpuscular Hemoglobin Concent 34.2, Red Cell Distribution Width 11.8, Neutrophils (%) (Auto) 81.4 H, Lymphocytes (%) (Auto) 6.8 L, Monocytes (%) (Auto) 11.0 H, Eosinophils (%) (Auto) 0.1, Basophils (%) (Auto) 0.3, Neutrophils # (Auto) 12.6 H, Lymphocytes # (Auto) 1.1 L, Monocytes # (Auto) 1.7 H, Eosinophils # (Auto) 0.0, Basophils # (Auto) 0.0, Calcium Level 8.8 Assessment/Plan Patient is 29 years old male without past medical history presented hospital wi th left jaw pain and swelling. Patient left the hospital AMA yesterday. He was admitted prior with left facial cellulitis secondary to poor oral hygiene. CT scan was done yesterday and showed asymmetric heterogeneous enhancement and slight enlargement of the left submandibular gland consistent with sialoadenitis. Patient has been treated with clindamycin IV. ENT specialist saw him yesterday and recommended treatment with IV antibiotics until abscess consolidation. Today patient has more swollen left part of his face and neck, he barely opens his mouth. Patient has leukocytosis of 15. Of note, patient stated that he drinks vodka every day for past few months. Problems (1) Dental abscess Problem Text: Continue antibiotics Unasyn IV Appreciate/agree with ENT recommendation CT neck pending (2) Facial cellulitis Status: Acute Problem Text: Secondary to poor oral hygiene See above (3) Alcohol abuse Problem Text: CIWA Plan / VTE VTE Prophylaxis Ordered?: Yes NILS SANTA DO Jul 13, 2019 04:22
[2019-07-13] MEDS: NICOTINE 21MG/24HR 1 EA TRANSDERMAL TD SCH ×2 (05:58→14:41)
[2019-07-13] MEDS: THIAMINE 100 MG TAB PO SCH ×2 (05:58→20:48)
[2019-07-13] MEDS: FOLIC ACID 1 MG TAB PO SCH (08:45)
[2019-07-13] MEDS: MULTIVITAMINS/MINERALS THERAP 1 TAB PO SCH (08:45)
[2019-07-13] MEDS: KETOROLAC 30 MG/ML VIAL (J1885) IV PRN ×3 (08:59→22:32)
[2019-07-13] MEDS ORDERED: HEPARIN SOD (PORCINE) 5000 UNITS/ML VIAL SC SCH (09:00)
[2019-07-13] MEDS ORDERED: dexameTHASONE 4 MG/ML 1ML VIAL (J1100) As Ordered ONE (11:56)
[2019-07-13] MEDS ORDERED: MIDAZOLAM INJ 5 MG/ML VIAL (J2250) As Ordered ONE (11:56)
[2019-07-13] MEDS ORDERED: fentaNYL 100 MCG/2 ML INJECTION (J3010) As Ordered ONE (11:56)
[2019-07-13] MEDS ORDERED: SUCCINYLCHOLINE 100 MG/5 ML SYRINGE (J0330) As Ordered ONE (11:56)
[2019-07-13] MEDS ORDERED: propofoL 200 MG/20 ML VIAL As Ordered ONE (11:56)
[2019-07-13] MEDS ORDERED: ROCURONIUM BROMIDE 50 MG/5 ML VIAL As Ordered ONE (11:56)
[2019-07-13] MEDS ORDERED: ONDANSETRON 4MG/2ML VIAL (J2405) As Ordered ONE ×2 (12:01→13:10)
[2019-07-13] MEDS ORDERED: HYDROmorphone HCL 2 MG/ML 1ML VIAL (J1170) As Ordered ONE (12:08)
[2019-07-13] MEDS ORDERED: BACITRACIN OINT 30GM As Ordered ONE (12:25)
[2019-07-13] MEDS ORDERED: LIDOCAINE W/EPINEPHRINE 1% 20ML VIAL As Ordered ONE (12:28)
[2019-07-13 12:58] LABS: C REACTIVE PROTEIN QUANTITATIV 6.15 MG/DL (0.00-0.30); MAGNESIUM LEVEL 1.7 MG/DL (1.8-2.4)
[2019-07-13] MEDS ORDERED: LR 1,000 ML IV SCH (13:15)
[2019-07-13] MEDS ORDERED: ONDANSETRON 4MG/2ML VIAL (J2405) IV PRN (13:15)
[2019-07-13] MEDS ORDERED: fentaNYL 100 MCG/2 ML INJECTION (J3010) IV PRN (13:15)
[2019-07-13] MEDS ORDERED: ACETAMINOPHEN TAB 650MG DOSE (2X325MG) PO PRN (14:15)
[2019-07-13] MEDS ORDERED: AMPICILLIN SOD/SULBACTAM SOD 1.5 GM in D5W MINI-BAG PLUS 50 ML IV SCH ×2 (14:15→16:00)
--- NOTE | 2019-07-13 14:23 | IPNPDOC ---
Text Note Date of Service The patient was seen on 07/13/19. NOTE Subjective: Patient is seen and examined at bedside. Patient was just back from the operating room after ENT to come down to incise and drain the infection that is in the patient's neck. Patient says he is feeling better. Patient's pain is relatively controlled at this time however, he is asking for some Tylenol for his pain. Patient's not to for Toradol for another hour when I was seeing him. Patient is doing better than he was yesterday and is calmer than he was yesterday. Review of systems General: Patient denies fevers HEENT: Patient is a pain in his mouth and his neck have improved. Cardiovascular: Patient denies chest pain Respiratory: Patient denies shortness of breath, cough GI: Patient denies abdominal pain, nausea, vomiting, diarrhea : Patient denies pain or difficulty with urination Neurological: Patient denies numbness or tingling in extremities Extremities: Patient denies swelling or pain in extremities Objective: Vitals: (see below) General: No acute distress, laying comfortably in bed. HEENT: Normocephalic, atraumatic, moist mucous membranes. Neck: Patient has a bandage and a drain in place on the left side of his neck. Cardiac: RRR, No murmurs Pulm: Clear to auscultation b/l. No wheezing, rhonchi Abd: NT/ND + BS Ext: No edema or cyanosis. Radial, posterior tibial, and dorsalis pedis pulses equal bilaterally. Labs (see below) Images: A CT of the neck with contrast performed on 07/13/2019 showed lucency is seen in this left second molar mandibular tooth with large low-attenuation area in the floor of the mouth with surrounding enhancing margin extended from the inner margin of the left mandible roughly measuring 24 x 15 mm. Multiple septations are seen in the fluid collection. Findings most likely represent multi spatial abscess originating from the left mandibular dental abscess at second molar. Heterogeneous enlarged left some mandibular gland with surrounding inflammation and small fluid likely reactive sialadenitis from left mandibular dental abscess. Opacification of the left vallecula likely from inflammation extended from the left submandibular gland. Assessment/Plan 1. Dental abscess. Patient was taken to the OR by ENT and had the abscess drained. A drain is in place. Patient will continue on IV clindamycin. 2. Cellulitis. Continue with IV clindamycin. 3. Alcohol abuse. Continue with CIWA protocol. DVT prophy: Heparin 5000 units every 8 hours Dispo: Ending clinical improvement in clearance by ENT. VSApryl, I+O VSApryl, I+O Laboratory Tests 07/13/19 01:29 Red Blood Count 4.30, Mean Corpuscular Volume 94.0, Mean Corpuscular Hemoglobin 32.1, Mean Corpuscular Hemoglobin Concent 34.2, Red Cell Distribution Width 11.8, Neutrophils (%) (Auto) 81.4 H, Lymphocytes (%) (Auto) 6.8 L, Monocytes (%) (Auto) 11.0 H, Eosinophils (%) (Auto) 0.1, Basophils (%) (Auto) 0.3, Neutrophils # (Auto) 12.6 H, Lymphocytes # (Auto) 1.1 L, Monocytes # (Auto) 1.7 H, Eosino phils # (Auto) 0.0, Basophils # (Auto) 0.0, Calcium Level 8.8 Vital Signs Date Time Temp Pulse Resp B/P (MAP) Pulse Ox O2 Delivery O2 Flow Rate FiO2 07/13/19 13:20 98.9 82 14 127/67 (87) 95 07/12/19 22:19 Room Air GME ATTESTATION GME ATTESTATION My faculty preceptor for this patient encounter was physically present during the encounter and was fully available. All aspects of the patient interview, examination, medical decision making process, and medical care plan development were reviewed and approved by the faculty preceptor. The faculty preceptor is aware and concurs with the plan as stated in the body of this note and will attest to such by his/her cosignature. ATTENDING NOTE I, Sapna Saxena, have independently examined this patient and performed my own physical exam, as well as reviewed the documentation and edited where necessary. I have discussed in detail with the resident / student the findings and plan of treatment as documented by the resident / student and edited their note. I agree with their findings and treatment plan and have edited their documentation. I will continue to follow the patient during this hospital stay. MARC OAKES DO Jul 13, 2019 14:23 SAPNA SAXENA MD Jul 13, 2019 15:51
[2019-07-13] MEDS: CLINDAMYCIN 900 MG in IV 1 EA IV SCH ×2 (14:40→20:48)
[2019-07-13] MEDS: HEPARIN SOD (PORCINE) 5000 UNITS/ML VIAL SC SCH ×2 (14:41→22:32)
--- NOTE | 2019-07-13 17:06 | IPN ---
DATE: 07/13/2019 HISTORY OF THE PRESENT ILLNESS: This 29-year-old was seen by me yesterday, 07/12/2019, after he was admitted, placed on IV clindamycin. The patient had similar problems with swelling in the left face. The patient came in with a white count of 12.9. At that time had about 3 cm of inter-incisor distance and could see the posterior oropharynx. The patient also has a very bad dentition. Apparently the oral surgeon saw him yesterday, the patient was somewhat confused and somewhat upset yesterday, left against medical advice (AMA) and just started walking home in the rain and in the cold. He also got lost, was very tired, fatigued, eventually he did get home and talked to his , and they came back to the emergency room because he was having more pain in the jaw and a little bit more difficulty swallowing. He was seen by the emergency room (ER) physician who repeated a CT scan and noticed that when he left his white count initially was 10 but when repeated it was elevated at 15. Repeated CT scan showed increase in the cellulitis and probable formation of abscess. The patient was started on Unasyn on this visit. He has no known drug allergies. PHYSICAL EXAMINATION: The patient is resting comfortably, in no acute distress in 5 [place], 5199. Patient is sitting up talking without any significant difficulty and no obstruction of the airway. He does report it is somewhat painful to swallow. EACs still show significant cerumen, but what could be seen of the tympanic membranes (TMs), they appear to be intact. The nasal exam is unremarkable. The patient still can open up his mouth about 3 cm inter-incisor, still has fullness in the left submandibular/parapharyngeal region, tender to touch, not ballotable, but very tender. White count last night was 15.5, platelet count was 157, hematocrit was 40.4. Repeat CT scan of the neck performed 07/13/2019 at 1:47 a.m. revealed dental lucency is seen at the left second molar mandible tooth with large low attenuation area in the floor of the mouth surrounding enhancing margin extending from the inner margin of the left mandible roughly measuring 24 x 15 mm craniocaudal and AP projection. Multiple septations are seen in the fluid collection, findings most likely represent multispatial abscess originating from the left mandibular dental abscess at second molar. No acute fractures, heterogeneous enlarged left submandibular gland with surrounding inflammation and small fluid likely reactive sialadenitis from left submandibular dental abscess. Opacification of the left vallecula likely from inflammation extending from the left submandibular gland. Also reactive lymphadenopathy. IMPRESSION: Patient initially with improvement in his white count but then left AMA and walked in the middle of the night in the rain, was lost, developed worsening of his symptoms fairly rapidly. He was brought back to the emergency room. At this point, the patient has been started on Unasyn. PLAN: At this point, we talked to him about his options, would recommend incision and drainage of the left neck abscess/dental abscess and placement of drain. We did talk about the small possibility of tracheotomy for airway, which I think is unlikely but is consented for if necessary. We also talked about the need for placement of drain. We talked about the risk of a left marginal mandibular nerve and salivary fistula, need for possible future surgery and further drainage, also possible need for dental extraction later, once inflammation is under control, by the oral surgeon. We talked about the rare possibility of blood transfusion, and if it was necessary to save his life would he take it, which he did sign the consent for. At this point, the patient has consented for left neck incision and drainage with possible tracheotomy. He understands the risk. was present as well. She understands he will need to continue with the IV antibiotics and will likely need to follow up with oral surgery once the inflammation is under control. We have made arrangements to talk with the anesthesiologist and will try and get him on this morning. Thank you for this consultation. ANDREW
[2019-07-14 02:09] VITALS: BP 117/84
[2019-07-14] MEDS: CLINDAMYCIN 900 MG in IV 1 EA IV SCH ×2 (03:44→09:22)
[2019-07-14] MEDS: KCL 40MEQ IN D5/NS 1000ML 1,000 ML IV SCH ×2 (04:15→06:32)
[2019-07-14] MEDS: HEPARIN SOD (PORCINE) 5000 UNITS/ML VIAL SC SCH (05:51)
[2019-07-14] MEDS: KETOROLAC 30 MG/ML VIAL (J1885) IV PRN (06:33)
--- NOTE | 2019-07-14 07:50 | RO ---
DATE OF PROCEDURE: 07/13/2019 PREOPERATIVE DIAGNOSIS: Left deep neck abscess secondary to left posterior molar carious tooth. POSTOPERATIVE DIAGNOSIS: Left deep neck abscess secondary to left posterior molar carious tooth. PROCEDURE PERFORMED: Incision and drainage of left deep neck abscess secondary to bad dental infection of the left molar, mandibular tooth. SURGEON: Joe Whittington Jr, MD ANESTHESIA: GET, by Dr. Figueroa and BLUEPRINT DEVELOPER. INDICATIONS FOR PROCEDURE: Patient recalcitrant to IV antibiotics with left Deep neck abscess secondary to poor dentition. DESCRIPTION OF PROCEDURE: The patient was brought into the operating room (OR) with the anesthesiologist after we had discussed the plan for airway control. Because the CT scan did not show significant airway obstruction, the patient initially underwent awake direct visualization with the GlideScope by the anesthesiologist. Once he felt he was able to secure the airway, the patient was induced and given propofol as well as succinyl. The patient was intubated without difficulty. Once this was done. and the previous tracheotomy tray, that was on standby, was put away, a time-out was performed for an incision and drainage of left deep neck abscess. The angle of the mandible was identified and was somewhat difficult because of the induration as well as a ramus of the mandible, which was identified, was also slightly difficult as well. Intraorally, the patient was examined and near the carious root could be seen intraorally a little bit of swelling and induration present on that side of the floor of mouth on the left side. A linear parallel line was drawn to fingerbreadths below the ramus of the mandible and parallel with that and then the localized abscess pocket intraorally, there was a perpendicular line drawn to the line inferiorly going towards the tooth. After this was done and time-out was performed and the patient was placed in the correct position a 25 gauge needle was used to inject in the proposed incision site to fingerbreadths below the ramus, 5 mL 1% lidocaine 1:100,000 epinephrine. The patient was painted with iodine prepped and draped in the usual fashion. At this point, approximately a 3.5 cm incision was made parallel to the ramus inferior and parallel to the ramus of the left mandible. There was induration in the submandibular gland. The incision was done down to the platysma, which was then cut and then reflected superiorly. The submandibular gland was identified. The platysma was elevated until we were able to get to the inferior aspect of the ramus and this was then parallel to the line that had been previously drawn to the tooth. When we arrived at this area, Edilia and the mosquito snaps were used to carefully dissect into this area. Then an 18-gauge spinal catheter was used to access the area. The 18-gauge needle brought 2.5 mL of john pus that was obtained. Dissection along this cavity was opened up with a Edilia and then copiously irrigated, and then a peanut was used to manipulate and break up any septations. [place] elevator was also insinuated into the area to break up any further loculations an approximately another mL was obtained. This was suctioned out and then the area was copiously irrigated with bacitracin irrigation quarter-inch Moustapha drain was placed. The platysma was sewn together with interrupted #3-0 chromic followed by the Moustapha drain, which had been previously placed and the pocket was sutured with #4-0 nylon to the skin and the skin was closed with interrupted $4-0 nylon. At this point gauze fluffs were placed over the incision site and then 3-inch foam tape, after placement of Mastisol was placed on each edge, was placed over for a slight compressive dressing. The patient tolerated the procedure well. The patient was taken to recovery room in satisfactory condition FINDINGS: John pus approximately 3 to 3.5 mL. Findings included also significantly enlarged left submandibular gland, mainly reactive there is no evidence of blockage or pus in the submandibular gland itself and appeared to be more of inflammation that was around the submandibular gland as there was significant edema of the tissue SPECIMENS: Cultures were sent for aerobic, anaerobic, fungal, Gram stain and cultures and sensitivities. ESTIMATED BLOOD LOSS: Less than 10 mL. COMPLICATIONS: There were no complications. MTDD
[2019-07-14 08:22] LABS: HEMATOCRIT 38.3 % (42.0-52.0); HEMOGLOBIN 12.7 g/dl (13.5-17.5); MEAN CORPUSCULAR HEMOGLOBIN 31.3 pg (27.0-33.0); MEAN CORPUSCULAR HGB CONC 33.2 g/dl (32.0-36.5); MEAN CORPUSCULAR VOLUME 94.3 fl (80.0-96.0); PLATELET COUNT, AUTOMATED 166 10^3/uL (150-450); RED BLOOD COUNT 4.06 10^6/uL (4.30-6.10); WHITE BLOOD COUNT 10.1 10^3/uL (4.0-10.0)
[2019-07-14 08:44] LABS: BLOOD UREA NITROGEN 4 MG/DL (7-18); CALCIUM LEVEL 8.9 MG/DL (8.5-10.1); CARBON DIOXIDE LEVEL 24 MEQ/L (21-32); CHLORIDE LEVEL 112 MEQ/L (98-107); CREATININE FOR GFR 0.66 MG/DL (0.70-1.30); GLOMERULAR FILTRATION RATE > 60.0 (>60); GLUCOSE, FASTING 129 MG/DL (70-100); POTASSIUM SERUM 3.9 MEQ/L (3.5-5.1); SODIUM LEVEL 144 MEQ/L (136-145)
[2019-07-14] MEDS: THIAMINE 100 MG TAB PO SCH (09:20)
[2019-07-14] MEDS: MULTIVITAMINS/MINERALS THERAP 1 TAB PO SCH (09:20)
[2019-07-14] MEDS: FOLIC ACID 1 MG TAB PO SCH (09:21)
[2019-07-14] MEDS ORDERED: AUGM875T28 PO (10:12)
[2019-07-14] MEDS ORDERED: IBUP1TAB7 PO (10:12)
[2019-07-14] MEDS ORDERED: NICO21PAT TD (10:27)
[2019-07-14] MEDS ORDERED: AUGMENTIN 875 MG TAB PO ONE (10:30)
--- NOTE | 2019-07-14 10:31 | DS.PDOC ---
Discharge Summary General Date of Admission Jul 13, 2019 at 04:01 Date of Discharge 07/14/19 Attending Physician: SAPNA DYER MD Specialist/Consultants Involve: SHAINA SUERO MD Specialist/Consultants Involve Sumit Finch DMD MD, Oral surgery Discharge Summary PROCEDURES PERFORMED DURING STAY: Incision and drainage of abscess and neck. ADMITTING/DISCHARGE DIAGNOSES: 1. Dental abscess 2. Cellulitis 3. Alcohol abuse 4. Nicotine dependence COMPLICATIONS/CHIEF COMPLAINT: Facial pain and swelling HISTORY OF PRESENT ILLNESS/HOSPITAL COURSE: Patient is a 29-year-old male who presented to the hospital initially on 07/11/2019 for left sided facial pain and swelling. An initial CT showed no abscess however he did have some sialoadenitis. Patient was admitted to the hospital because he also had trismus and hadn't eaten since Wednesday, 3 days prior to initial admission. Patient was started on IV clindamycin and ENT and oral surgery saw the patient. At that time, there was no surgical intervention necessary. Patient was very nervous th roughout his hospitalization. Due to the patient's heavy tobacco use patient needed nicotine patches throughout his hospitalization. Patient left AGAINST MEDICAL ADVICE on the night of 07/12/2019 in quickly returned to the emergency room within a few hours. Patient was admitted again early in the morning of 07/13/2019 for the same complaint. That time patient was initially started on IV Unasyn which was switched to IV clindamycin. On the morning of 07/13/2019, patient was taken to the operating room by Dr. Suero of ENT for an abscess drainage and drain placement in the patient's neck. Since the abscess drain, patient has been able to open his mouth further and is feeling better. Patient has been eating and his diet has been advanced to mechanical soft at this time. Patient and his were taught how to do the dressing changes. Patient was transitioned to oral Augmentin as it has twice a day dosing compared to clindamycin's 4 times a day dosing. Augmentin also has good coverage for oral pathogens. Patient was deemed ready for discharge with follow-up with oral surgery and ENT. Patient was discharged home on 07/14/2018. DISCHARGE MEDICATIONS: Please see below. ALLERGIES: Please see below. PHYSICAL EXAMINATION ON DISCHARGE: Vitals: (see below) General: No acute distress, laying comfortably in bed. HEENT: Patient had left-sided facial swelling with a drain in place. This is improved from when his initial admission happened. Patient still has tenderness over the left side of his face. Neck: No JVD or lymphadenopathy Cardiac: RRR, No murmurs Pulm: Clear to auscultation b/l. No wheezing, rhonchi Abd: NT/ND + BS Ext: No edema or cyanosis LABORATORY DATA: Please see below. IMAGING: A neck CT with contrast performed on 07/11/2019 showed asymmetric heterogeneous enhancement and slight enlargement of the left submandibular gland consistent with sialoadenitis. There is an abnormal lucency extending from the gland into the floor the mouth. It does not have the contour of her normal doctor and may be an obstructed duct or developing abscess. There is adjacent left facial cellulitis. A CT of the neck with contrast performed 07/13/2019 showed lucencies seen in this left second molar mandibular tooth with large low attenuation area in the floor of the mouth with surrounding enhancing margin extending from the inner margin of the left mandible roughly measuring 24 x 15 mm. Multiple septations was seen in the fluid collection. Findings most likely represent multiple s pecial abscess originating from the left mandibular dental abscess at second molar. Heterogeneous in largest left submandibular gland with surrounding formation and small fluid likely reactive sialadenitis from the left mandibular dental abscess. Opacification of the left vallecula likely from inflammation extended from the left submandibular gland. Reactive lymphadenopathy. PROGNOSIS: Good ACTIVITY: As tolerated. DIET: Mechanical soft DISCHARGE PLAN/DISPOSITION: Discharge home DISCHARGE INSTRUCTIONS: 1. Follow-up with ENT on either Wednesday or Wednesday of next week. 2. Follow up with oral surgery. 3. Continue wound care as prescribed by ENT. 4. Take Augmentin 1 tablet twice a day for 10 days. 5. Follow-up with PCP within 5-10 days. 6. Take ibuprofen 800 mg 3 times a day as needed for pain. 7. Return to ED if symptoms worsen. DISCHARGE CONDITION: Stable. TIME SPENT ON DISCHARGE: 38 minutes. Vital Signs/I&Os Vital Signs Date Time Temp Pulse Resp B/P (MAP) Pulse Ox O2 Delivery O2 Flow Rate FiO2 07/14/19 02:09 98.5 79 16 117/84 (95) 96 07/12/19 22:19 Room Air I&O- Last 24 Hours up to 6 AM 07/14/19 06:00 Intake Total 4960 ml Output Total 2150 ml Balance 2810 ml Laboratory Data Labs 24H Laboratory Tests 2 07/14/19 07:43: Nucleated Red Blood Cells % (auto) 0.0, Anion Gap 8, Glomerular Filtration Rate > 60.0, Blood Urea Nitrogen 4L, Creatinine 0.66L, Sodium Level 144, Potassium Level 3.9#, Chloride Level 112H, Carbon Dioxide Level 24, Calcium Level 8.9 CBC/BMP Laboratory Tests 07/14/19 07:43 Red Blood Count 4.06 L, Mean Corpuscular Volume 94.3, Mean Corpuscular Hemoglobin 31.3, Mean Corpuscular Hemoglobin Concent 33.2, Red Cell Distribution Width 12.0, Calcium Level 8.9 Microbiology Microbiology 07/13/19 Fungal Smear, Received Pending 07/13/19 Fungal Culture, Received Pending 07/13/19 Gram Stain - Final, Resulted 07/13/19 Wound Culture, Resulted Pending 07/13/19 Anaerobic Culture, Resulted Pending Discharge Medications Scheduled Amoxicillin/Potassium Clav (Augmentin 875-125 Tablet) 1 Each Tablet, 1 TAB PO BID Ibuprofen (Ibuprofen) 800 Mg Tablet, 1 TAB PO TID for pain Nicotine (Nicotine Patch) 21 Mg Patch.td24, 1 PATCH TD QHS Thiamine HCl (Thiamine HCl) 100 Mg Tablet, 100 MG PO BID, (Reported) Scheduled PRN Multivitamins (Thera M Plus Tablet) 1 Each Tablet, 1 TAB PO DAILY PRN for COLD SYMPTOMS, (Reported) Allergies Coded Allergies: No Known Allergies (Unverified , 07/11/19) GME ATTESTATION GME ATTESTATION My faculty preceptor for this patient encounter was physically present during the encounter and was fully available. All aspects of the patient interview, examination, medical decision making process, and medical care plan development were reviewed and approved by the faculty preceptor. The faculty preceptor is aware and concurs with the plan as stated in the body of this note and will attest to such by his/her cosignature. ATTENDING NOTE I, Sapna Dyer, have independently examined this patient and performed my own physical exam, as well as reviewed the documentation and edited where necessary. I have discussed in detail with the resident / student the findings and plan of treatment as documented by the resident / student and edited their note. I agree with their findings and treatment plan and have edited their documentation. I will continue to follow the patient during this hospital stay. Time spent on discharge 38 minutes MARC OAKES DO Jul 14, 2019 10:31 SAPNA DYER MD Jul 14, 2019 14:23
--- NOTE | 2019-07-17 11:01 | IPN ---
DATE: 07/14/2019 SUBJECTIVE: The patient is postoperative day #1 status post incision and drainage of deep left neck abscess from the left mandibular second molar parapharyngeal region. He had 3 mL of john pus that were obtained yesterday and a Winslow drain was placed. The patient is feeling much better today, able to open up wider, talk, has less pain and is able to eat. The patient is feeling significantly better. OBJECTIVE: VITAL SIGNS: Temperature is 98.5, blood pressure is 117/84, pulse is 96% on room on room air oxygen. The patient is having no significant issues at this time. PHYSICAL EXAMINATION: The patient reported the incision and drainage sight, which looks significantly better. The Winslow drain is still in place. Less induration present. LABORATORY DATA: White count is 10.1, hemoglobin 12.7, hematocrit is 38.3, platelet count is 166,000. IMPRESSION: Status post incision and drainage left deep neck abscess secondary to dental infection with reactive sialadenitis from the infection nearby, but no internal submandibular gland infection present. RECOMMENDATIONS: At this point, patient is taking oral intake well. Can be discharged with oral antibiotics. We will leave the drain in. Patient will continue with oral antibiotics. He understands if there is any other issues, that he will need to go back to the emergency room, but he is feeling much better. We also asked him not to drink any alcohol and remain hydrated. Patient will also continue with dressing changes and his will be taught how to perform dressing changes by the nurse. Patient will follow up in our clinic next week to consider having the drain removed and primary care physician will set up an appointment with the oral surgeon for tooth extraction. He will follow up with one of our physicians or our physician drilling assistant (PA) to remove the drain. Case was discussed with Dr. Petersen. PLAN: Discharge with oral antibiotics and follow up in ENT as well as oral surgery.
== END 2019-07-14 11:50 | disposition home or self-care (01) | DRG 98 ==
LOC: M ED 22:18 → M ED INP 07-13 04:01 → M MS5PR 07-13 06:30
PROVIDERS: ADMIT Internal Medicine; ATTEND Internal Medicine
PROC: 0W9600Z Drainage of Neck with Drainage Device, Open Approach (ICD-10-PCS; principal; 2019-07-13 11:00)
DX: K11.21 Acute sialoadenitis (principal); L03.211 Cellulitis of face; F10.10 Alcohol abuse, uncomplicated; F17.200 Nicotine dependence, unspecified, uncomplicated; K04.7 Periapical abscess without sinus

== ENCOUNTER → 2019-08-03 | Outpatient (REF) | payer MEDICAID, OTHER ==
[~2019-08-03] MED LIST changes: +AUGM875T28 PO; +CLIN300C5 PO; +IBUP1TAB7 PO; +NICO21PAT TD; +THIA100T7 PO
== END ==
LOC: M SFHCPLAZ 15:03
DX: F10.10 Alcohol abuse, uncomplicated (principal); Z53.9 Procedure and treatment not carried out, unspecified reason

== ENCOUNTER → 2019-08-11 | Outpatient (REF) | payer MEDICAID, OTHER | LOC: M SFHCPLAZ 12:13 | DX: Z53.9 Procedure and treatment not carried out, unspecified reason (principal) ==